=== PATIENT | male | born 1960 | race Hispanic/Latino ===

== ENCOUNTER 2017-03-29 07:46 | Inpatient (IN) | payer SELFPAY ==
[2017-03-29 08:19] LABS: Hematocrit 52.4 % (42.0-52.0); Mean Platelet Volume 8.9 fL (7.4-10.4); Red Blood Cell (RBC) Count 5.38 mill/uL (4.70-6.10); White Blood Cell (WBC) Count 23.6 thou/uL (4.8-10.8)
[2017-03-29 08:44] LABS: Band 16 % (5-11); Neutrophil 70 % (42-75); Vacuoles MODERATE
[2017-03-29 08:47] LABS: ALT (SGPT) 34 U/L (8-55); AST (SGOT) 32 U/L (5-34); Alkaline Phosphatase 79 U/L (40-150); Anion Gap 16 mmol/L (10-20); BUN (Urea Nitrogen) 19 mg/dL (8.4-25.7); Bilirubin, Total 2.1 mg/dL (0.2-1.2); CK (CPK) 82 U/L (30-200); Calc. Creatinine Clearance 0 mL/min (70-130); Calcium 9.8 mg/dL (7.8-10.44); Carbon Dioxide 23 mmol/L (22-29); Chloride 98 mmol/L (98-107); Estimated GFR-MDRD 62; Globulin 4.4 g/dL (2.4-3.5); Protein, Total 8.4 g/dL (6.0-8.3)
[2017-03-29 08:50] LABS: Troponin I Less than 0.010 ng/mL (< 0.028)
--- NOTE | 2017-03-29 08:57 | RAD ---
PORTABLE CHEST: HISTORY: Chest pain. COMPARISON: 04/20/2011 FINDINGS: Slightly elevated right hemidiaphragm may represent mild eventration. The lungs appear clear. There is a deformity involving the posterior right fifth rib, which may have been present previously and probably represents an old fracture. The heart and mediastinum are unremarkable. IMPRESSION: No evidence of acute process. POS: [facility]
[2017-03-29] MEDS ORDERED: Ondansetron HCl/PF 4 MG/2 ML Vial ONE (09:15)
[2017-03-29] MEDS ORDERED: Morphine Sulfate 2 MG/ML SYRINGE ONE ×2 (09:15→10:46)
--- NOTE | 2017-03-29 10:31 | ULT ---
RIGHT UPPER QUADRANT ULTRASOUND: 03/29/2017 HISTORY: Nausea, vomiting, and right upper quadrant abdominal pain. FINDINGS: The pancreas is mostly obscured by bowel gas and is not well evaluated on this study. There is increased echogenicity of the liver, suggesting diffuse fatty infiltration. This limits ev aluation of the liver, but no focal hepatic lesion is appreciated. There is increased echogenic material within the gallbladder lumen, some of which demonstrates poste rior shadowing, consistent with multiple gallbladder calculi. In addition, there is what appears to be gallbladder sludge. There is no gallbladder wall thickening seen. There is suggestion of trace pericholecystic fluid, which is overall nonspecific. There is no gallbladder wall thickening prese nt. The gallbladder is distended, measuring at least 12 cm in length. The common duct measures 0.7 5 cm in diameter, which is dilated. No intrahepatic biliary ductal dilatation is seen. The visualized portions of the IVC and right kidney demonstrate a normal sonographic appearance. Th e right kidney measures 10.2 cm in length. IMPRESSION: 1. Cholelithiasis with associated gallbladder sludge. The gallbladder is also distended. There is suggestion of trace pericholecystic fluid. No gallbladder wall thickening is present. 2. Dilatation of the common duct. The exact etiology is unable to be determined on this exam. The re is no pericholecystic fluid seen. 3. Diffuse fatty infiltration of the liver with hepatomegaly. The liver measures 19 cm in cranioca udal dimensions. POS: [facility]
[2017-03-29 11:05] LABS: Bilirubin Small (Negative); Blood, Urine Trace (Negative); Glucose, Urine (Dipstick) Negative (Negative); Ketone, Urine 15 mg/dL (Negative); Nitrite Negative (Negative); Protein, Urine (Dipstick) 100 mg/dL (Neg-Trace)
[2017-03-29 11:11] LABS: Bacteria/HPF None Seen HPF (None Seen); Hyaline Casts/LPF 7-10 HYALINE CAST LPF (0-3 Hyaline); Squamous Epithelial 0-3 HPF (0-3); WBC/HPF 0-3 HPF (0-3)
[2017-03-29 11:12] LABS: Renal Epithelial None Seen HPF (0-3); Transitional Epithelial NONE SEEN HPF (0-3)
[2017-03-29] MEDS ORDERED: Acetaminophen 1,000 MG in Premix Bag 1 BAG IVPB ONE (12:15)
[2017-03-29] MEDS ORDERED: Ketorolac Tromethamine 30 MG/ML VIAL ONE (12:24)
[2017-03-29 12:43] LABS: PTT 44.2 SEC (22.9-36.1)
[2017-03-29 12:44] LABS: Lactic Acid - Sepsis 1.8 mmol/L (0.5-2.2)
[2017-03-29] MEDS ORDERED: Iothalamate Meglumine 60% 50 ML VIAL FS ONE (13:35)
[2017-03-29] MEDS ORDERED: Bupivacaine PF 0.5% 30 ML VIAL ONE (13:38)
--- NOTE | 2017-03-29 14:32 | HP-2 ---
DATE OF ADMISSION: 03/29/2017 LOCATION OF ADMISSION: [facility] ATTENDING: Dr. Kike Courtney CHIEF COMPLAINT: Right-sided abdominal pain. HISTORY OF PRESENT ILLNESS: Edwin Gaines is a 57-year-old male who presents with right-sided and epigastric abdominal pain that started Wednesday. He said it comes and goes, gets worse when he moves. He has been to eat much throughout the weekend. He ate some pineapple and some tortilla which caused him some pain. He has had vomiting episodes x2. He vomited 1 time this morning after drinking water. He also reported having diarrhea on Wednesday after eating the pineapple. He has had nothing to eat today except for the water. He said the pain is worse, cannot get comfortable with the pain. He reports fever and chills, does not have a recorded fever, but reports just being hot and sweaty throughout the weekend. He denies any chest pain. Denies any urinary problems. Denies any dizziness or rashes or anything like that. REVIEW OF SYSTEMS: All review of systems not noted in the HPI are otherwise negative at this time. PAST MEDICAL HISTORY: None. He has no doctor currently that he sees. PAST SURGICAL HISTORY: He has had an umbilical hernia repair and inguinal hernia repair and a lipoma removed from his right back shoulder. FAMILY HISTORY: His dad had high cholesterol and his mom also had gallstones as well. SOCIAL HISTORY: 1. No smoking. 2. Alcohol, he drinks occasionally on the weekends. 3. No illicit drug use. PHYSICAL EXAMINATION: VITAL SIGNS: His blood pressure is 106/60, his pulse is 101. His respirations are 20. His temperature is 97.5. His O2 sat was 90% on room air. GENERAL: The patient does appear to be in some distress and pain. He is alert and oriented x3. HEENT: PERRLA. Conjunctival within normal limits. NECK: Supple, no thyromegaly, no lymph nodes noted. CARDIOVASCULAR: Regular rate and rhythm. No murmurs or gallops. RESPIRATORY: Lungs are clear to auscultation. Symmetric rise. No pain to palpation of the chest, nonlabored breathing. ABDOMEN: Tender to palpation, tender in the epigastric area. Positive Saldana sign in the right area, very tender in the right upper quadrant pain, says the pain radiates to the back. There was no pain to palpation of the back. No masses or distention. He does have an incision site of the umbilical hernia. It is a little red and dry around the incisional umbilical hernia site. MUSCULOSKELETAL: Moves all extremities. Normal range of movement. Strength 5/ 5. NEUROLOGIC: No neurovascular deficit. No focal neuro deficit noted. PSYCHIATRIC: Appropriate. Just reports being in pain. LABORATORY DATA: White blood cell count 22.6, hemoglobin 17.3, hematocrit 52.4 , MCV 97.5, platelets 146, sodium 133, potassium 3.6, chloride 98, CO2 23, BUN of 19, creatinine 1.21, glucose is 138. MCV is 97.5. CK-MB is 1.0, troponin is 0.010. Lipase is 11. Total protein is 8.4, albumin is 4.0, total bilirubin is 2.1, AST 32, ALT 34, alkaline phosphatase is 79, and CK is 82. Chest x-ray no evidence of acute cardiopulmonary disease. Ultrasound of the abdomen. There is cholelithiasis with gallbladder sludge. The gallbladder is distended and there is pericholecystic fluid. There is no wall thickening present. Dilatation of the common bile duct, no pericholecystic exact etiology, unable to determine fluid on exam. There is diffuse fatty infiltrate of the liver with hepatomegaly. Liver measures 19 cm in craniocaudal dimensions. ASSESSMENT AND PLAN: This is a 57-year-old male who reports right upper quadrant pain. 1. Acute cholecystitis vs Cholangitis 2. Elevated possible fasting blood sugar. 3. Leukocytosis. PLAN: We will keep him n.p.o. at this time, start him on normal saline at a rate of 100, give him 1 fluid bolus. We will start him on Zosyn and likely take him for removal of his gallbladder sometime today. We will consult GI for ERCP for removal of obstruction in the common bile duct. We will check his lab in the morning. We will give him IV morphine for pain control at this time and continue to monitor. We will give him Zofran for vomiting as he has had episodes of vomiting. Will continue to monitor vital signs and treat as needed. Pt was seen and plan of care was Discussed w/ Dr. Kike Courtney. [facility]
[2017-03-29] MEDS ORDERED: Bupivacaine 0.25% HCL 30 ML VIAL ONE (15:07)
[2017-03-29] MEDS ORDERED: Lidocaine 1% w/Epinephrine 1:200K 30 ML VIAL ONE (15:21)
[2017-03-29] MEDS ORDERED: PHENYLEPHRINE-NS 100 MCG/ML 10 ML SYRINGE ONE (15:51)
[2017-03-29] MEDS ORDERED: Vecuronium 10 MG VIAL ONE (15:51)
[2017-03-29] MEDS ORDERED: Piperacillin/Tazobactam 3.375 GM VIAL ONE (17:41)
[2017-03-29 18:07] LABS: ALT (SGPT) 26 U/L (8-55); AST (SGOT) 29 U/L (5-34); Alkaline Phosphatase 85 U/L (40-150); Bilirubin, Direct 1.1 mg/dL (0.1-0.3); Bilirubin, Total 2.2 mg/dL (0.2-1.2); Lipase 12 U/L (8-78); Protein, Total 5.7 g/dL (6.0-8.3)
[2017-03-29] MEDS ORDERED: Phenylephrine 10 MG/NS 250 ML 250 ML ONE (18:20)
[2017-03-29 18:29] LABS: Troponin I 0.028 ng/mL (< 0.028)
[2017-03-29] MEDS ORDERED: Sodium Bicarb 50 MEQ/50 ML Abboject 8.4% SYRINGE ONE (18:44)
[2017-03-29] MEDS ORDERED: Albuterol Sulfate HFA (OR ONLY) ONE (18:44)
[2017-03-29] MEDS ORDERED: Sodium Bicarbonate 2.4 MEQ/5 ML ONE (18:44)
[2017-03-29] MEDS ORDERED: Midazolam HCl 2 mg/2 ml Vial ONE (19:47)
--- NOTE | 2017-03-29 19:56 | RAD ---
ERCP: History: Cholelithiasis. FINDINGS/IMPRESSION: Five spot fluoroscopic images during and ERCP demonstrate opacification of the common duct and sever al hepatic branches without filling defects. The pancreatic duct is not opacified. There is contrast in the second portion of the duodenum. POS: [facility]
[2017-03-29 20:33] LABS: Bilirubin Small (Negative); Blood, Urine Small (Negative); Glucose, Urine (Dipstick) Negative (Negative); Ketone, Urine 15 mg/dL (Negative); Nitrite Negative (Negative); Protein, Urine (Dipstick) 100 mg/dL (Neg-Trace)
[2017-03-29 20:35] LABS: Bacteria/HPF None Seen HPF (None Seen); Hyaline Casts/LPF 4-6 HYALINE CAST LPF (0-3 Hyaline)
[2017-03-29] MEDS ORDERED: Ondansetron HCl/PF 4 MG/2 ML Vial IVP PRN (20:55)
[2017-03-29 20:57] LABS: Sodium 141 mmol/L (135-148)
[2017-03-29] MEDS ORDERED: Albumin 5% 500 ML ONE (20:58)
[2017-03-29] MEDS ORDERED: Sodium Chloride 0.9% 1,000 ML IV SCH (21:00)
[2017-03-29] MEDS ORDERED: Fentanyl 20 MCG/ML 250 ML IVPB SCH (21:00)
[2017-03-29 21:01] LABS: Mechanical Tidal Volume 550 ml; Mode SIMV; Pressure Support 10 cmH2O; Vent YES
[2017-03-29] MEDS: Vasopressin 40 UNIT, Admixture Fee 1 EACH in Sodium Chloride 0.9% 100 ML IV SCH (21:14)
[2017-03-29] MEDS: Norepinephrine 8 MG/250 ML BAG IVPB PRN (21:20)
[2017-03-29 21:24] LABS: Lactic Acid - Sepsis 1.3 mmol/L (0.5-2.2)
[2017-03-29 21:32] LABS: Band 17 % (5-11); Hematocrit 40.9 % (42.0-52.0); Neutrophil 65 % (42-75); Red Blood Cell (RBC) Count 4.15 mill/uL (4.70-6.10); White Blood Cell (WBC) Count 13.7 thou/uL (4.8-10.8)
[2017-03-29 21:34] LABS: ALT (SGPT) 62 U/L (8-55); AST (SGOT) 97 U/L (5-34); Alkaline Phosphatase 83 U/L (40-150); Anion Gap 12 mmol/L (10-20); BUN (Urea Nitrogen) 18 mg/dL (8.4-25.7); Bilirubin, Total 2.5 mg/dL (0.2-1.2); Calc. Creatinine Clearance 0 mL/min (70-130); Calcium 7.8 mg/dL (7.8-10.44); Carbon Dioxide 21 mmol/L (22-29); Chloride 108 mmol/L (98-107); Estimated GFR-MDRD 62; Globulin 3.1 g/dL (2.4-3.5); Magnesium 1.3 mg/dL (1.6-2.6); Phosphorus 3.3 mg/dL (2.3-4.7); Protein, Total 5.9 g/dL (6.0-8.3)
[2017-03-29 21:36] LABS: Hemoglobin A1c 5.9 % (4.0-6.0)
[2017-03-29] MEDS: Sodium Chloride 0.9% 1,000 ML IV SCH (21:47)
[2017-03-29] MEDS: Piperacillin/Tazobactam 3.375 GM in Sodium Chloride 0.9% 100 ML IVPB SCH (21:49)
[2017-03-29] MEDS ORDERED: Hydrocortisone Sod Succ/PF 100 mg/2 ml Vial IVP SCH (22:00)
[2017-03-29] MEDS ORDERED: Magnesium Sulfate 4 GM in Sodium Chloride 0.9% 250 ML 250 ML IVPB SCH (22:00)
[2017-03-29] MEDS: Meropenem 1 GM in Sodium Chloride 0.9% 100 ML IVPB SCH (22:25)
--- NOTE | 2017-03-29 22:32 | CON ---
DATE OF CONSULTATION: 03/29/2017 CHIEF COMPLAINT: Abdominal pain. HISTORY OF PRESENT ILLNESS: Mr. Gaines is a 57-year-old man, who presented with right upper quad rant aching pain that started Wednesday, 3 nights ago. The pain has been continuous and radiates aroun d to his right side. He has had associated nausea and vomiting with this. He came to the emergency room today for further care and was found to have fever and chills. He is sweating profusely. He is awake and alert now. No chest pain or shortness of breath. No diarrhea, constipation or blood i n the stool. He took four 325 mg aspirin tablets this morning. He also took four Motrin tablets th morning. The symptoms continued despite that, so he came into the ER. PAST MEDICAL HISTORY: Negative. PAST SURGICAL HISTORY: Umbilical hernia repair, right inguinal hernia repair. FAMILY HISTORY: Negative for GI malignancy. SOCIAL HISTORY: He drinks 16 beers on the weekend. That is on Wednesday night. He states he does n ot drink at all on the other nights. No smoking or drugs. ALLERGIES: No known drug allergies. MEDICATIONS AT HOME: No routine scheduled medications. REVIEW OF SYSTEMS: Negative x10 systems reviewed except as stated in the history of present illness . PHYSICAL EXAMINATION: GENERAL: He is in no acute distress. He is awake and alert, oriented x3 currently. HEENT: Eyes have no scleral icterus. Oropharynx is clear, without lesions. NECK: No cervical or supraclavicular lymphadenopathy. LUNGS: Clear to auscultation bilaterally. HEART: Regular rate and rhythm without murmur. ABDOMEN: Tender in the right upper quadrant. He does not guard and his bowel sounds are present. EXTREMITIES: No lower extremity edema. There is no asterixis. VITAL SIGNS: Blood pressure is in the 90s/60s. Temperature has been as high as 101, pulse 120. Ho wever, it has been as high as 150 in the ER. LABORATORY DATA: White blood cell count 23.6, hemoglobin 17.3, platelets 146. INR 1.3. Creatinine 1.21, bilirubin 2.1, AST 32, ALT 34, alkaline phosphatase 79, albumin 4.0. Lipase 11. IMAGING: Ultrasound showed cholelithiasis and sludge in the gallbladder. There was some pericholec ystic fluid and gallbladder distention. The common bile duct was slightly dilated at 7.5 mm. IMPRESSION: 1. Sepsis syndrome. He is on broad spectrum antibiotics with Zosyn. He is hypotensive and tachyca rdic and is receiving aggressive IV fluid resuscitation. 2. Cholelithiasis with possible ascending cholangitis associated with fever, right upper quadrant p ain, elevated bilirubin and mildly dilated common bile duct. 3. Alcohol abuse. He reports drinking 16 beers at a time, but only one day per week. The low plat elet count could indicate that he could actually have some underlying chronic liver disease. His IN R was mildly elevated at 1.3. The ultrasound showed signs of fatty liver, but not jose miguel cirrhosis. RECOMMENDATIONS: 1. Antibiotics and fluid resuscitation. 2. ERCP. 3. Dr. Courtney plans to follow the ERCP with cholecystectomy.
--- NOTE | 2017-03-29 22:52 | RAD ---
PORTABLE CHEST ONE VIEW: Date: 03-29-17 Time: 8:05 p.m. History: Sepsis. Respiratory failure. FINDINGS/IMPRESSION: Comparison is made with exam of 8:30 a.m. from the same date. There has been interval placement of an endotracheal tube with its tip below the level of the clavic ular heads. There is an nasogastric tube with the tip in the direction of the stomach. There is a 3. 4 cm tube-like structure in the right of midline in the right lower chest of uncertain etiology. A f oreign body cannot be excluded. Clinical correlation is recommended. There are atelectatic changes o f the lung bases. A small left pleural effusion is present. No pneumothorax is identified. Code T POS: [facility]
[2017-03-29] MEDS ORDERED: Pantoprazole 40 MG VIAL IVP SCH (23:15)
--- NOTE | 2017-03-29 23:16 | OP ---
DATE OF PROCEDURE: 03/29/2017 PROCEDURE PERFORMED: Endoscopic retrograde cholangiopancreatography with sphincterotomy and balloon sweep of the bile duct. PREOPERATIVE DIAGNOSIS: Ascending cholangitis. OPERATIVE NOTE: Informed consent was obtained from the patient. He was sedated with general anesth esia. The patient was placed in the prone position and the bite block was inserted and the scope was advan antonio to the second portion of the duodenum without difficulty. The ampulla was identified; however, it was within the diverticulum and was fixed in a lateral facing position. It was difficult to obta in a straight on view to the ampulla. Ultimately, the ampulla was cannulated with a guidewire and s phincterotome. Cholangiogram was performed, which showed normal intrahepatic ducts and normal commo n bile duct. The cystic duct did not fill. The duct was not dilated. It measured around 5 mm. A small sphincterotomy was performed. A large sphincterotomy cannot be performed due to the angles wi thin the diverticulum that prevented good contact between the sphincterotome wire and the mucosa. A 9-mm balloon was passed through the sphincterotomy easily without any resistance. The balloon swee p of the bile duct was performed and occlusive cholangiogram was performed, which confirmed the duct to be clear. The air was suctioned from the stomach and the procedure was completed. The patient was then rolled over for laparoscopic cholecystectomy. The bile was clear yellow. IMPRESSION: 1. Normal cholangiogram. 2. Small sphincterotomy and balloon sweep of the bile duct confirms the duct to be clear. 3. Sepsis, likely secondary to cholecystitis. PLAN: Laparoscopic cholecystectomy. The additional NSAIDs were not given as the patient did have 800 mg of ibuprofen and 1300 mg of aspi rin just prior to coming to the hospital.
[2017-03-30] MEDS: Sodium Chloride 0.9% 1,000 ML IV SCH ×4 (01:30→21:18)
--- NOTE | 2017-03-30 02:01 | OP ---
DATE OF OPERATION: 03/29/2017 PREOPERATIVE DIAGNOSES: 1. Acute cholecystitis with cholelithiasis. 2. Suspected acute cholangitis. 3. Acute septic shock secondary to #1. POSTOPERATIVE DIAGNOSES: 1. Acute gangrenous cholecystitis. 2. Septic shock secondary to #1. OPERATIONS PERFORMED: Attempted laparoscopic cholecystectomy converted to open cholecystectomy. SURGEON: Kike Courtney. ANESTHESIA: General endotracheal. ESTIMATED BLOOD LOSS: 300 mL FLUIDS GIVEN: 3000 mL crystalloids plus additional 3000 mL given in the emergency department prior to trip to the operating room. COUNTS: Sponge and instrument count certified as correct x2. COMPLICATIONS: None apparent at the time of operation. INDICATIONS FOR PROCEDURE: A 57-year-old man presented to emergency department with acute onset epi gastric to right upper quadrant abdominal pain. Clinical and radiographic examination was consisten t with acute cholecystitis with cholelithiasis. Hour into the patient's initial evaluation, he deve loped worsening abdominal pain associated with fever, T-max 104 degrees Fahrenheit with massive tach ycardia and delirium. Acute cholangitis was suspected. The patient underwent an emergent ERCP wher e the cholangiogram was normal, no common bile duct stone was noted. The patient was then transport ed to the operating room for laparoscopic cholecystectomy. We attempted laparoscopy. There was sig nificant amount of adhesions in the right upper quadrant. Small bowel was markedly dilated making i t impossible to insufflate the abdomen. Decision was made therefore to convert this to open. DESCRIPTION OF PROCEDURE: Informed consent obtained from the patient who was brought to the endosco py and ERCP was completed by Dr. Win. Following the ERCP, the patient was transported to the oper ating room for cholecystectomy. Once general anesthesia was initiated, previous Stanford catheter was placed to bedside drain. Orogastric tube was placed to wall suction. The abdomen was sterilely pre pped and draped in the usual fashion. Skin below the umbilicus was infiltrated with 0.25% Marcaine with epinephrine. A small curvilinear infraumbilical incision is made using an 11 scalpel. Umbilic al stalk was grasped with Jaylon's and elevated. Veress needle introduced through this incision and placed in the peritoneal cavity through which the abdomen was insufflated with only 2 liters of CO2 gas. Intra-abdominal pressure was noted at 4 mmHg. Following abdominal insufflation, Veress needl e was removed and 5 mm trocar was introduced using a Visiport. Laparoscopy confirmed proper placeme nt and no injuries to underlying structures. Laparoscopy further reveals markedly distended multipl e loops of small bowel, obscuring vision. However, I able to place a 12 mm port in the epigastrium and two 5 mm right lateral subcostal ports after the overlying skin was infiltrated with 0.25% Ravinder ine with epinephrine and appropriate incision was made. The patient was placed in the reverse Trend elenburg position, rotated to the left. Multiple attempts to reach the right upper quadrant was wit hout success. We were then meticulously able to take down omental adhesions to reveal gallbladder i n the usual anatomic location completely encased by omental adhesions. There was no room to proceed with the procedure. We therefore decided to convert this to open. To achieve this using #10 scalp el, right subcostal incision was made. The incision is carried through subcutaneous tissues maintai mike hemostasis using thermocautery. Fascia was incised along the line of the incision using cauter y. Peritoneum was then incised and the incision was extended through the entire length of the skin wound. Bookwalter retractor was put in place to gain exposure. We were able to pack off the small bowel inferiorly. I applied ring forceps at the fundus of the gallbladder, which was elevated. I p laced laparotomy packs in both sides of the gallbladder using a malleable Bookwalter retractor to ge t additional exposure. The gallbladder itself was taken down from the liver bed in a retrograde fas hion using cautery. The cystic duct was dissected free from surrounding structures and divided betw een clips applying two clips proximally. Cystic artery was divided again between clips. The gallbl adder itself was removed from the liver bed using cautery. There was some fair amount of oozing com ing from the gallbladder fossa. We used Areli to gain ready hemostasis. This was a foul smelling gangrenous gallbladder, which was passed off the operative field following for transmission to patho logy. The operative site was irrigated and cleared with saline solution prior to application of the Areli. A #19 Keith drain was introduced into the subhepatic space and allowed to exit the abdomin al cavity through a separate stab incision. The drain was secured to intraabdominal wall using 2-0 silk. All packs were removed from the abdominal cavity and accounted for. Peritoneum was then appr oximated using a running stitch of 0 Vicryl. Fascia was approximated in layers using a running stit ch of 0 Vicryl. Prior to closure of the fascia, the epigastric port site fascia was closed from wit hin the abdominal cavity using interrupted sutures of 0 Vicryl. Once the subcostal fascial incision s were closed, subcutaneous tissue was pulse lavaged with 1500 mL of sterile saline. The subcutaneo us tissue was approximated using interrupted sutures of 2-0 Vicryl. All skin incisions are closed u sing yolanda. Sterile dressing was applied. We then turned our attention to the chest wall for almaz cement of the central venous catheter.
--- NOTE | 2017-03-30 02:25 | OP ---
DATE OF PROCEDURE: 03/29/2017 PREOPERATIVE DIAGNOSES: 1. Acute gangrenous cholecystitis with cholelithiasis. 2. Septic shock. POSTOPERATIVE DIAGNOSES: 1. Acute gangrenous cholecystitis with cholelithiasis. 2. Septic shock. OPERATION PERFORMED: Placement of triple lumen left subclavian central venous catheter. SURGEON: Kike Courtney D.O. INDICATIONS FOR PROCEDURE: This is a 57-year-old man who presented with abdominal pain. Clinical a nd radiographic examination was consistent with acute cholecystitis, cholelithiasis. Patient underw ent an emergent ERCP for suspicious of acute ascending cholangitis. FINDINGS: No evidence of common bile ductal obstruction. Patient was taken emergently to the opera ting room. Laparoscopy converted to open cholecystectomy was achieved. Patient was found with gangrenous barrington cystitis and septic shock, having received 6000 mL crystalloids, and now on vasopressor support. Decision was made therefore to place a central venous catheter for both IV therapeutics and for hemo dynamic monitoring. DESCRIPTION OF PROCEDURE: Consent is implied. We have completed the abdominal part of the operatio n. I went out and rescrubbed, regowned, came back, and then the left chest wall sterilely prepped a nd draped in the usual fashion. The left subclavian vein was cannulated with an 18-gauge introducer needle returning dark venous blood. Guidewire was passed through this needle and advanced into the left subclavian vein without resistance. The needle was withdrawn over the guidewire. A stab inci shane is made adjacent to the guidewire using an 11 scalpel. Dilator was passed over the guidewire d ilating subcutaneous tissues. Triple-lumen central venous catheter was then advanced over the guide wire and placed in the left subclavian vein without resistance and stopping at the 18 cm raghavendra. Guid ewire is removed. Dark venous blood was aspirated from all 3 ports, which were then individually fl ushed with saline. Catheter was secured to anterior chest wall using 3-0 silk suture at 2 points. Biopatch and sterile dressing were then applied. Patient tolerated the operation without any appare nt complication and remains hemodynamically stable following completion of the procedure. Patient w ill be transported to the intensive care unit in critical, but stable condition.
[2017-03-30] MEDS: Enoxaparin Sodium 30 MG/0.3 ML SYRINGE SC SCH ×2 (05:40→17:03)
[2017-03-30] MEDS: Meropenem 1 GM in Sodium Chloride 0.9% 100 ML IVPB SCH ×2 (05:40→14:30)
[2017-03-30 05:42] LABS: #Lymphocytes 0.8 thou/uL (1.20-3.40); #Monocytes 0.8 thou/uL (0.11-0.59); #Neutrophils 10.9 thou/uL (1.40-6.50); %Basophils 0.1 % (0.0-1.0); %Eosinophils 0.2 % (0.0-10.0); %Lymphocytes 6.6 % (21.0-51.0); %Monocytes 6.5 % (0.0-10.0); Hematocrit 33.3 % (42.0-52.0); Mean Platelet Volume 9.7 fL (7.4-10.4); Red Blood Cell (RBC) Count 3.34 mill/uL (4.70-6.10); White Blood Cell (WBC) Count 12.6 thou/uL (4.8-10.8)
[2017-03-30 06:04] LABS: ALT (SGPT) 65 U/L (8-55); AST (SGOT) 110 U/L (5-34); Alkaline Phosphatase 65 U/L (40-150); Anion Gap 12 mmol/L (10-20); BUN (Urea Nitrogen) 16 mg/dL (8.4-25.7); Calc. Creatinine Clearance 126 mL/min (70-130); Calcium 7.9 mg/dL (7.8-10.44); Carbon Dioxide 22 mmol/L (22-29); Chloride 111 mmol/L (98-107); Estimated GFR-MDRD 77; Globulin 2.9 g/dL (2.4-3.5); Magnesium 2.4 mg/dL (1.6-2.6); Phosphorus 2.5 mg/dL (2.3-4.7); Protein, Total 6.1 g/dL (6.0-8.3)
--- NOTE | 2017-03-30 08:30 | RAD ---
PORTABLE CHEST: History: Sepsis. Comparison: 03-29-17 FINDINGS: ET tube and NG tube remain in place. There is bibasilar infiltrate and/or atelectasis. There may be small effusions present. Upper lung zones remain clear. IMPRESSION: No interval change noted. POS: [facility]
[2017-03-30] MEDS ORDERED: Ondansetron HCl/PF 4 MG/2 ML Vial IVP PRN (08:50)
[2017-03-30] MEDS ORDERED: Zolpidem Tartrate 5 MG TAB PO PRN (08:50)
[2017-03-30] MEDS ORDERED: diphenhydrAMINE HCl 25 MG CAP PO PRN (08:50)
[2017-03-30] MEDS ORDERED: diphenhydrAMINE HCl 50 MG/ML 1 ML VIAL IM PRN (08:50)
[2017-03-30] MEDS ORDERED: diphenhydrAMINE HCl 50 MG/ML 1 ML VIAL IVP PRN (08:50)
[2017-03-30] MEDS ORDERED: Naloxone HCl 0.4 mg/ml Vial IV PRN (08:50)
[2017-03-30] MEDS ORDERED: Promethazine HCl 25 MG/ML VIAL IM PRN (08:50)
[2017-03-30] MEDS ORDERED: FLU VACC QS2017-18 36 mo. & older 0.5 ML SYRINGE IM ONE (09:00)
[2017-03-30] MEDS ORDERED: Communication Order-Pharmacy FS SCH (09:00)
[2017-03-30] MEDS: Pantoprazole 40 MG VIAL IVP SCH (09:30)
[2017-03-30] MEDS: HYDROmorphone 10 mg/100 ml CADD IVPB PRN (10:34)
[2017-03-30 10:35] LABS: Oxyhemoglobin 96.5 % (94.0-97.0); Sodium 141 mmol/L (135-148)
[2017-03-30 10:36] LABS: Oxyhemoglobin 84.1 % (94.0-97.0); Sodium 143 mmol/L (135-148)
--- NOTE | 2017-03-30 11:02 | PRG ---
DATE OF SERVICE: 03/30/2017 SUBJECTIVE: Mr. Gaines is post-admission on postoperative day #1, status post open cholecystecto my for gangrenous acute cholecystitis with cholelithiasis and a Gram-negative slim bacteremia. The p atanabel is currently sedated on mechanical ventilatory support. He is on norepinephrine and vasopres sin by continuous infusion to achieve mean arterial pressure in excess of 72. Urinary output overnight has been in excess of 0.5 mL plus kilogram per hour. When sedation is decreased the patient awakens to voice, moves all extremities and follows commands. PHYSICAL EXAMINATION: VITAL SIGNS: This morning includes blood pressure 103/63, pulse is 77, respiratory rate is 21, maxi mum temperature in the last 24 hours is 104 degrees Fahrenheit, last temperature; however, is 100.1 degrees Fahrenheit. GENERAL: The patient is currently on meropenem. HEENT: Reveals normocephalic and atraumatic. The pupils are equal, round, reactive to light and ac commodation. Extraocular muscles are intact bilaterally. He has no sclerae icterus present. HEART: Reveals regular rate and rhythm, no murmurs or gallops auscultated. CHEST: Clear to auscultation bilaterally. Breathing is regular and unlabored. ABDOMEN: Soft and obese. Incisional dressings are intact, clean and dry. Terry-Delgado drain retu rns moderate amount of serosanguineous fluid. NEUROLOGIC: Reveals no focal deficits present. LABORATORY DATA: Today includes a CBC with 12,600 white blood cells, hemoglobin 10.9, hematocrit is 33.3, platelet count is 121,000. This is in contrast to the CBC yesterday with 22,600 white blood cells, hemoglobin 17.3, hematocrit 52.4, platelet count 146,000. Blood cultures from yesterday is significant for E. coli, two out of two cultures. IMPRESSION: 1. Postoperative day #1, status post open cholecystectomy. 2. Gangrenous acute cholecystitis with cholelithiasis. 3. Escherichia coli bacteremia secondary to #2. 4. Acute septic shock secondary to #2 and 3. 5. Acute respiratory failure secondary to above. PLAN: 1. Wean sedation and ventilatory support and patient will be extubated as indicated . 2. Continue with IV fluid and vasopressor support. 3. We will begin to wean the vasopressors as long as mean arterial pressure of 60 is assured and ojn miguel's urinary output remains in excess of 0.5 mL plus kilogram per hour. 4. Continue with current antibiotic regimen until final culture results have been obtained. The above findings and plan discussed with the patient who indicates understanding of the informatio n given. Total critical care time is 45 minutes.
[2017-03-30] MEDS ORDERED: Hydrocortisone Sod Succ/PF 250 mg/2 ml Vial SLOW IVP SCH (12:00)
[2017-03-30] MEDS: Hydrocortisone Sod Succ/PF 250 MG in Sodium Chloride 0.9% 50 ML IVPB SCH ×2 (12:10→17:33)
[2017-03-30] MEDS: Vasopressin 40 UNIT, Admixture Fee 1 EACH in Sodium Chloride 0.9% 100 ML IV SCH (12:42)
[2017-03-30 14:10] LABS: Mode OR ABG; Vent YES
[2017-03-30 14:11] LABS: Vent YES
[2017-03-30 14:12] LABS: Mode OR ABG
[2017-03-30] MEDS ORDERED: Meropenem 1 GM, Admixture Fee 1 EACH in Sodium Chloride 0.9% 100 ML IVPB SCH (14:30)
[2017-03-30] MEDS: Norepinephrine 8 MG/250 ML BAG IVPB PRN (14:55)
--- NOTE | 2017-03-30 18:55 | PRG ---
DATE OF SERVICE: 03/30/2017 SUBJECTIVE: Mr. Gaines feels better today after his cholecystectomy. He had an open procedure u ltimately. His pain is improved. His fevers resolved. OBJECTIVE: VITAL SIGNS: Temperature is 97.6, pulse 82 and blood pressure 104/70. GENERAL: He is in no acute distress, awake and alert. LUNGS: Clear to auscultation bilaterally. HEART: Regular rate and rhythm. ABDOMEN: Soft and tender around the incision. EXTREMITIES: No lower extremity edema. LABORATORY DATA: White blood cell count 12.6, hemoglobin 10.9 and platelets 121. INR 1.3, bilirubi n 2.0, AST 110, ALT 65 and alkaline phosphatase 65. IMPRESSION: Gangrenous cholecystitis with associated sepsis. Endoscopic retrograde cholangiopancre atography was negative for cholangitis. RECOMMENDATIONS: 1. Continue to monitor for post-sphincterotomy bleeding as the patient was advised to watch for kai ck stools. 2. Postoperative care per General Surgery. I will sign off for now. Please call if GI can be of a ssistance.
[2017-03-30] MEDS: Meropenem 1 GM, Admixture Fee 1 EACH in Sodium Chloride 0.9% 100 ML IVPB SCH (21:18)
[2017-03-31] MEDS: Hydrocortisone Sod Succ/PF 250 MG in Sodium Chloride 0.9% 50 ML IVPB SCH ×2 (00:51→06:11)
[2017-03-31] MEDS: HYDROmorphone 10 mg/100 ml CADD IVPB PRN (01:12)
[2017-03-31 03:59] LABS: #Lymphocytes 0.9 thou/uL (1.20-3.40); #Monocytes 0.6 thou/uL (0.11-0.59); #Neutrophils 9.8 thou/uL (1.40-6.50); %Basophils 0.1 % (0.0-1.0); %Eosinophils 0.1 % (0.0-10.0); %Lymphocytes 7.9 % (21.0-51.0); %Monocytes 5.7 % (0.0-10.0); Hematocrit 31.3 % (42.0-52.0); Mean Platelet Volume 9.2 fL (7.4-10.4); Red Blood Cell (RBC) Count 3.15 mill/uL (4.70-6.10); White Blood Cell (WBC) Count 11.3 thou/uL (4.8-10.8)
[2017-03-31 04:24] LABS: Anion Gap 8 mmol/L (10-20); BUN (Urea Nitrogen) 13 mg/dL (8.4-25.7); Calc. Creatinine Clearance 172 mL/min (70-130); Calcium 8.3 mg/dL (7.8-10.44); Carbon Dioxide 28 mmol/L (22-29); Chloride 110 mmol/L (98-107); Estimated GFR-MDRD Greater than 90; Magnesium 2.3 mg/dL (1.6-2.6); Phosphorus 1.9 mg/dL (2.3-4.7)
[2017-03-31] MEDS: Meropenem 1 GM, Admixture Fee 1 EACH in Sodium Chloride 0.9% 100 ML IVPB SCH (05:59)
[2017-03-31] MEDS: Enoxaparin Sodium 30 MG/0.3 ML SYRINGE SC SCH ×2 (06:00→17:56)
[2017-03-31] MEDS: Sodium Chloride 0.9% 1,000 ML IV SCH (06:01)
[2017-03-31 07:17] LABS: ALT (SGPT) 45 U/L (8-55); AST (SGOT) 38 U/L (5-34); Alkaline Phosphatase 62 U/L (40-150); Bilirubin, Direct 0.4 mg/dL (0.1-0.3); Bilirubin, Total 0.9 mg/dL (0.2-1.2); Protein, Total 5.9 g/dL (6.0-8.3)
[2017-03-31] MEDS ORDERED: Potassium Phosphate 30 MMOL in Sodium Chloride 0.9% 250 ML 250 ML IVPB SCH (08:15)
[2017-03-31 08:20] VITALS: BMI 39.7
[2017-03-31] MEDS: Pantoprazole 40 MG VIAL IVP SCH (08:25)
[2017-03-31] MEDS: traMADol HCl 50 MG TAB PO SCH ×3 (10:32→19:49)
[2017-03-31] MEDS: Ibuprofen 600 MG TAB PO SCH ×2 (10:33→17:57)
[2017-03-31] MEDS: Acetaminophen 500 MG TAB PO SCH ×3 (10:33→19:49)
--- NOTE | 2017-03-31 11:35 | PRG ---
DATE OF SERVICE: 03/31/2017 SUBJECTIVE: This is a 57-year-old man who is postoperative day #2, status post open cholecystectomy. The patient had gangrenous acute cholecystitis, cholelithiasis, complicated by E. coli bacteremia and septic shock. He has done well since extubation yesterday. Urinary output remains in excess of 0.5 mL plus kilogram per hour. The patient is off all vasopressors for over 12 hours now. He is awake and alert. Raymundo coma scale is 15. OBJECTIVE: VITAL SIGNS: This morning includes blood pressure 147/64, pulse 73, respiration 20, maximum temperature in the last 24 hours is 98.3 degrees Fahrenheit. Oxygen saturation is 100% on 2 liters by nasal cannula oxygen. HEENT: Reveals normocephalic and atraumatic. The pupils are equal, round, and reactive to light and accommodation. Extraocular muscles are intact bilaterally. He has no sclerae icterus present. Oral mucosa is pink and moist. He has no lesions noted. HEART: Reveals regular rate and rhythm, no murmurs or gallops auscultated. CHEST: Clear to auscultation bilaterally. His breathing is regular and unlabored. ABDOMEN: Soft and obese. Incisions remain intact, clean, and dry. He clearly has no gross rebound tenderness present. Terry-Delgado drain returned a scant amount of serous fluid. NEUROLOGIC: Reveals no focal deficits present. LABORATORY FINDINGS: Includes a CBC with 11,300 white blood cells, hemoglobin 10.2, hematocrit is 31.3, platelet count is 128,000. Metabolic profile: Sodium 142, potassium is 3.9, chloride is 110, bicarbonate is 28, BUN 13, creatinine 0.74, glucose is 165. Magnesium 2.3, phosphorus is 1.9. LFTs are normal with AST and ALT at 38 and 45, respectively. Total bilirubin has normalized now at 0.9. IMPRESSION: 1. Postoperative day #1 status post open cholecystectomy for gangrenous acute cholecystitis with cholelithiasis. 2. Resolved septic shock. 3. Acute hypokalemia. 4. Acute hypophosphatemia. PLAN: 1. The patient will be saline locked. 2. We will initiate a clear liquid diet. 3. The patient will be transferred out of the Intensive Care Unit to continue with physical and occupational therapy. 4. We will continue with IV antibiotics to treat for the Escherichia coli bacteremia. 5. Correct abnormal electrolytes. The above findings and plan discussed with the patient who indicates understanding of the information given. I answered his questions. The patient has expressed gratitude for the care rendered to him thus far. ANTOINE
[2017-03-31] MEDS: Hydrocortisone Sod Succ/PF 100 mg/2 ml Vial IVP SCH ×3 (11:46→22:41)
[2017-03-31] MEDS ORDERED: Senokot 8.6 MG TAB PO PRN (16:54)
[2017-03-31] MEDS: Ibuprofen 800 MG TAB PO SCH (18:12)
[2017-04-01] MEDS: Ibuprofen 800 MG TAB PO SCH ×2 (02:15→09:48)
[2017-04-01] MEDS: Acetaminophen 500 MG TAB PO SCH ×3 (02:16→14:41)
[2017-04-01] MEDS: traMADol HCl 50 MG TAB PO SCH ×3 (02:16→14:41)
[2017-04-01 04:36] LABS: Anion Gap 11 mmol/L (10-20); BUN (Urea Nitrogen) 20 mg/dL (8.4-25.7); Calc. Creatinine Clearance 154 mL/min (70-130); Calcium 8.2 mg/dL (7.8-10.44); Carbon Dioxide 26 mmol/L (22-29); Chloride 107 mmol/L (98-107); Estimated GFR-MDRD Greater than 90; Magnesium 2.1 mg/dL (1.6-2.6)
[2017-04-01 04:38] LABS: Phosphorus 1.9 mg/dL (2.3-4.7)
[2017-04-01] MEDS: Hydrocortisone Sod Succ/PF 100 mg/2 ml Vial IVP SCH (05:20)
[2017-04-01] MEDS: Enoxaparin Sodium 30 MG/0.3 ML SYRINGE SC SCH (05:20)
[2017-04-01] MEDS ORDERED: Potassium Phosphate 30 MMOL in Sodium Chloride 0.9% 500 ML IVPB SCH (08:00)
[2017-04-01] MEDS ORDERED: Polyethylene Glycol 3350 17 GM Packet PO SCH (09:00)
[2017-04-01] MEDS ORDERED: Saccharomyces boulardii 250 MG CAP PO SCH (09:00)
[2017-04-01] MEDS ORDERED: Furosemide 20 MG/2 ML VIAL SLOW IVP SCH (11:30)
[2017-04-01 11:50] VITALS: BP 145/92; TEMP 97.7
[2017-04-01] MEDS ORDERED: Hydrocortisone Sod Succ/PF 100 mg/2 ml Vial IVP SCH (14:00)
[2017-04-02] MEDS ORDERED: FLU VACC QS2017-18 36 mo. & older 0.5 ML SYRINGE IM ONE (09:45)
== END 2017-04-01 16:37 | disposition home or self-care (01) | DRG 853 ==
LOC: ERS 07:46 → SURG A 11:28 → CCU 20:53 → T4-A 03-31 12:17
PROVIDERS: ADMIT Internal Medicine; ATTEND Internal Medicine
PROC: 0F798ZZ Dilation of Common Bile Duct, Via Natural or Artificial Opening Endoscopic (ICD-10-PCS; principal; 2017-03-29)
PROC: 0FT40ZZ Resection of Gallbladder, Open Approach (ICD-10-PCS; 2017-03-29)
PROC: 0FJ44ZZ Inspection of Gallbladder, Percutaneous Endoscopic Approach (ICD-10-PCS; 2017-03-29)
PROC: 06HY33Z Insertion of Infusion Device into Lower Vein, Percutaneous Approach (ICD-10-PCS; 2017-03-29)
DX: A41.51 Sepsis due to Escherichia coli [E. coli] (principal); J96.00 Acute respiratory failure, unspecified whether with hypoxia or hypercapnia; R65.21 Severe sepsis with septic shock; K80.00 Calculus of gallbladder with acute cholecystitis without obstruction; F10.10 Alcohol abuse, uncomplicated; E87.6 Hypokalemia; E83.39 Other disorders of phosphorus metabolism; Z23 Encounter for immunization; Z53.31 Laparoscopic surgical procedure converted to open procedure
CPT/HCPCS: 36415; 36416; 71010; 74330; 76705; 80048; 80053; 80076; 81003; 81015; 82533; 82553; 82805; 83036; 83605; 83690; 83735; 84100; 84484; 85025; 85610; 85730; 86850; 86900; 86901; 87040; 87077; 87086; 87149; 87186; 88304; 90471; 90682; 93005; 94002; 94003; 96365; 96375; 96376; A4216; C1751; C9113; G0008; J0131; J1642; J1650; J1720; J1885; J1940; J1956; J2185; J2250; J2270; J2405; J2543; J3010; J3475; J7050; P9045; Q2036; Q9961; S0020

== ENCOUNTER 2022-02-16 15:49 | Emergency (ER) | payer SELFPAY ==
[2022-02-16 16:26] LABS: #Eosinphils 0.3 thou/uL (0.0-0.7); #Lymphocytes 2.1 thou/uL (1.20-3.40); #Monocytes 0.8 thou/uL (0.11-0.59); #Neutrophils 5.8 thou/uL (1.40-6.50); %Basophils 0.2 % (0.0-1.0); %Eosinophils 3.9 % (0.0-10.0); %Lymphocytes 22.8 % (21.0-51.0); %Monocytes 8.3 % (0.0-10.0); %Neutrophils 64.8 % (42.0-75.0); Hemoglobin 15.7 g/dL (14.0-18.0); Mean Corpuscular HGB CONC 34.2 g/dL (32.0-36.0); Mean Corpuscular Hemoglobin 32.9 pg (27.0-31.0); Mean Corpuscular Volume 96.1 fL (78.0-98.0); Mean Platelet Volume 9.8 fL (7.4-10.4); Platelet Count 168 thou/uL (130-400); Red Blood Cell (RBC) Count 4.77 mill/uL (4.70-6.10)
[2022-02-16 16:51] LABS: ALT (SGPT) 23 U/L (8-55); AST (SGOT) 29 U/L (5-34); Albumin 4.1 g/dL (3.5-5.0); Alkaline Phosphatase 50 U/L (40-110); Anion Gap 20 mmol/L (10-20); BUN (Urea Nitrogen) 18 mg/dL (8.4-25.7); Bilirubin, Total 1.2 mg/dL (0.2-1.2); CK (CPK) 167 U/L (30-200); Calc. Creatinine Clearance 0 mL/min (70-130); Calcium 9.8 mg/dL (7.8-10.44); Carbon Dioxide 21 mmol/L (22-29); Chloride 100 mmol/L (98-107); Estimated GFR 39; Globulin 3.9 g/dL (2.4-3.5); Glucose 279 mg/dL (70-105); Sodium 137 mmol/L (136-145)
[2022-02-16 18:28] LABS: #Eosinphils 0.2 thou/uL (0.0-0.7); #Lymphocytes 1.4 thou/uL (1.20-3.40); #Neutrophils 6.3 thou/uL (1.40-6.50); %Basophils 0.4 % (0.0-1.0); %Eosinophils 1.8 % (0.0-10.0); %Lymphocytes 15.2 % (21.0-51.0); %Neutrophils 71.6 % (42.0-75.0); Hemoglobin 14.8 g/dL (14.0-18.0); Mean Corpuscular HGB CONC 34.4 g/dL (32.0-36.0); Mean Corpuscular Hemoglobin 33.4 pg (27.0-31.0); Mean Corpuscular Volume 97.2 fL (78.0-98.0); Mean Platelet Volume 9.6 fL (7.4-10.4); Platelet Count 156 thou/uL (130-400); Red Blood Cell (RBC) Count 4.42 mill/uL (4.70-6.10); White Blood Cell (WBC) Count 8.9 thou/uL (4.8-10.8)
[2022-02-16 18:49] LABS: Anion Gap 14 mmol/L (10-20); BUN (Urea Nitrogen) 17 mg/dL (8.4-25.7); Calc. Creatinine Clearance 0 mL/min (70-130); Carbon Dioxide 24 mmol/L (22-29); Chloride 103 mmol/L (98-107); Estimated GFR 47; Glucose 254 mg/dL (70-105); Potassium 4.3 mmol/L (3.5-5.1); Sodium 137 mmol/L (136-145)
== END 2022-02-16 20:52 | disposition home or self-care (01) ==
LOC: ERS 15:49
DX: T67.5XXA Heat exhaustion, unspecified, initial encounter (principal); N17.9 Acute kidney failure, unspecified; E86.0 Dehydration
CPT/HCPCS: 36415; 80053; 82550; 83605; 85025; 93005; 96360; 96361